=== PATIENT | male | born 1960 | race Caucasian/White ===

== ENCOUNTER 2019-04-05 14:36 | Emergency (ER) | payer SELFPAY ==
[~2019-04-05] VITALS: Ht 180.3 cm; Wt 79.0 kg
[2019-04-05] MEDS ORDERED: HYDROCODONE/ACETAMINOPHEN 5/325MG TABLET PO ONE (15:30)
[2019-04-05 15:31] VITALS: BP 135/74
== END 2019-04-05 15:35 | disposition home or self-care (01) ==
LOC: ER 14:36
DX: S70.01XA Contusion of right hip, initial encounter (principal); R03.0 Elevated blood-pressure reading, without diagnosis of hypertension; W01.198A Fall on same level from slipping, tripping and stumbling with subsequent striking against other object, initial encounter; Y93.89 Activity, other specified; Y92.89 Other specified places as the place of occurrence of the external cause; Z98.890 Other specified postprocedural states
CPT/HCPCS: 99283